=== PATIENT | male | born 1940 | race Caucasian/White ===

== ENCOUNTER 2018-11-19 08:58 | Emergency (ER) | payer MEDICARE, OTHER ==
[2018-11-19] MEDS ORDERED: Acetaminophen 500 MG TAB ONE (09:46)
--- NOTE | 2018-11-19 09:50 | RAD ---
CHEST 1 VIEW: Date: 11/19/18 HISTORY: Cough. Congestion. COMPARISON: 12/07/16. FINDINGS: Heart size mildly enlarged. Single lead defibrillator in place. No pneumothorax. No effusion. Mild sc arring both lung bases. IMPRESSION: No acute intrathoracic abnormality. POS: [facility]
[2018-11-19 09:54] LABS: #Basophils 0.1 thou/uL (0.0-0.2); #Monocytes 1.1 thou/uL (0.11-0.59); #Neutrophils 5.2 thou/uL (1.40-6.50); %Basophils 0.8 % (0.0-1.0); %Eosinophils 0.6 % (0.0-10.0); %Lymphocytes 13.2 % (21.0-51.0); %Monocytes 14.9 % (0.0-10.0); %Neutrophils 70.5 % (42.0-75.0); Hemoglobin 16.5 g/dL (14.0-18.0); Mean Corpuscular HGB CONC 33.4 g/dL (32.0-36.0); Mean Corpuscular Hemoglobin 30.6 pg (27.0-31.0); Mean Corpuscular Volume 91.7 fL (78.0-98.0); Mean Platelet Volume 8.3 fL (7.4-10.4); Platelet Count 166 thou/uL (130-400); RBC Distribution Width 12.1 % (11.5-14.5); White Blood Cell (WBC) Count 7.3 thou/uL (4.8-10.8)
[2018-11-19 10:21] LABS: ALT (SGPT) 23 U/L (8-55); AST (SGOT) 29 U/L (5-34); Albumin 4.2 g/dL (3.4-4.8); Alkaline Phosphatase 67 U/L (40-150); Anion Gap 14 mmol/L (10-20); BUN (Urea Nitrogen) 14 mg/dL (8.4-25.7); Bilirubin, Total 0.6 mg/dL (0.2-1.2); CK (CPK) 103 U/L (30-200); Calc. Creatinine Clearance 0 mL/min (70-130); Calcium 9.3 mg/dL (7.8-10.44); Carbon Dioxide 24 mmol/L (23-31); Chloride 103 mmol/L (98-107); Estimated GFR-MDRD 51; Globulin 3.4 g/dL (2.4-3.5); Glucose 111 mg/dL (83-110); Potassium 4.7 mmol/L (3.5-5.1); Protein, Total 7.6 g/dL (5.8-8.1); Sodium 136 mmol/L (136-145)
[2018-11-19 12:46] LABS: Bilirubin Negative (Negative); Blood, Urine Negative (Negative); Clarity CLEAR (Clear); Glucose, Urine (Dipstick) Negative (Negative); Leukocyte Negative (Negative); Nitrite Negative (Negative); Protein, Urine (Dipstick) Negative (Neg-Trace); Specific Gravity, Urine 1.011 (1.002-1.036); Urobilinogen 0.2 mg/dL (0.2-1.0); pH, Urine 7.5 (5.0-9.0)
--- NOTE | 2018-11-21 15:12 | EKG ---
Test Reason : Blood Pressure : / mmHG Vent. Rate : 102 BPM Atrial Rate : 102 BPM P-R Int : 000 ms QRS Dur : 158 ms QT Int : 380 ms P-R-T Axes : -05 -10 009 degrees QTc Int : 495 ms Sinus tachycardia Right bundle branch block Septal infarct , age undetermined Abnormal ECG Confirmed by CHRISTO DE LA TORRE, TEVIN Kelly ([id number]), editor in chief newspaper TRISTEN JARVIS ([id number]) on 11/21/2018 3:11:45 PM Referred By: Confirmed By:TEVIN VILLAFUERTE MD
== END 2018-11-19 11:05 | disposition home or self-care (01) ==
LOC: ERS 08:58
DX: J10.1 Influenza due to other identified influenza virus with other respiratory manifestations (principal); I25.2 Old myocardial infarction; Z79.01 Long term (current) use of anticoagulants; Z79.899 Other long term (current) drug therapy; W19.XXXA Unspecified fall, initial encounter
CPT/HCPCS: 71045; 80053; 81003; 82550; 84484; 85025; 87040; 87804; 93005; 94760

== ENCOUNTER 2019-11-22 08:55 | Outpatient (CLI) | payer MEDICARE, OTHER ==
--- NOTE | 2019-11-22 10:12 | ULT ---
Bilateral renal ultrasound CLINICAL INDICATION: Chronic kidney disease. COMPARISON: None FINDINGS: Right kidney: There is no evidence of a renal mass, renal calculus, or hydronephrosis seen. There is suggestion of mild focal area of scarring the junction of the midportion inferior pole right kidney. The right kidney measures 10.1 cm x 4.5 cm. Left kidney: There is no evidence of a renal mass, renal calculus, or hydronephrosis. There is sugges tion of mild scarring midportion left kidney. The left kidney measures 10.3 cm x 5.3 cm. Urinary bladder: Incompletely distended but otherwise grossly normal in appearance. Urinary bladder v olume is 76.3 mL. IMPRESSION: No evidence of hydronephrosis.
== END 2019-11-22 08:56 | disposition home or self-care (01) ==
LOC: BICULT 08:55
PROVIDERS: ATTEND Internal Medicine Nephrology
DX: N18.3 Chronic kidney disease, stage 3 (moderate) (principal)
CPT/HCPCS: 76770

== ENCOUNTER 2022-09-17 10:58 | Inpatient (IN) | payer MEDICARE ==
[2022-09-17 11:45] LABS: #Eosinphils 0.5 thou/uL (0.0-0.7); #Lymphocytes 1.2 thou/uL (1.20-3.40); #Monocytes 1.7 thou/uL (0.11-0.59); #Neutrophils 12.7 thou/uL (1.40-6.50); %Basophils 0.1 % (0.0-1.0); %Eosinophils 3.3 % (0.0-10.0); %Lymphocytes 7.6 % (21.0-51.0); %Monocytes 10.3 % (0.0-10.0); %Neutrophils 78.7 % (42.0-75.0); Hemoglobin 12.3 g/dL (14.0-18.0); Mean Corpuscular HGB CONC 32.8 g/dL (32.0-36.0); Mean Corpuscular Hemoglobin 29.9 pg (27.0-31.0); Mean Platelet Volume 9.1 fL (7.4-10.4); Platelet Count 245 10x3/uL (130-400); RBC Distribution Width 12.2 % (11.5-14.5); Red Blood Cell (RBC) Count 4.13 mill/uL (4.70-6.10); White Blood Cell (WBC) Count 16.2 10x3/uL (4.8-10.8)
[2022-09-17 12:20] LABS: ALT (SGPT) 59 U/L (8-55); AST (SGOT) 69 U/L (5-34); Albumin 3.1 g/dL (3.4-4.8); Alkaline Phosphatase 121 U/L (40-110); Anion Gap 16 mmol/L (10-20); BUN (Urea Nitrogen) 27 mg/dL (8.4-25.7); Bilirubin, Total 1.1 mg/dL (0.2-1.2); Calc. Creatinine Clearance 0 mL/min (70-130); Calcium 9.1 mg/dL (7.8-10.44); Carbon Dioxide 19 mmol/L (23-31); Chloride 91 mmol/L (98-107); Estimated GFR 55; Globulin 3.3 g/dL (2.4-3.5); Glucose 103 mg/dL (83-110); Potassium 4.1 mmol/L (3.5-5.1); Protein, Total 6.4 g/dL (5.8-8.1); Sodium 122 mmol/L (136-145)
[2022-09-17 12:28] LABS: INR-International Normal Ratio 3.4; Prothrombin Time 35.5 sec (12.0-14.7)
[2022-09-17] MEDS ORDERED: cefTRIAXone\\ROCEPHIN 2 GM VIAL ONE ×2 (12:31→13:28)
[2022-09-17 13:23] LABS: SARS-CoV-2 NAA Rapid Test Not Detected (NotDetected)
[2022-09-17] MEDS ORDERED: Azithromycin 500 MG VIAL ONE (13:44)
[2022-09-17] MEDS ORDERED: FENTANYL 50 MCG/ML 1 ML VIAL ONE (13:48)
[2022-09-17] MEDS ORDERED: Nitroglycerin 0.4 MG TAB 1 EACH ONE (14:11)
[2022-09-17] MEDS ORDERED: Acetaminophen 325 MG TAB PO PRN (14:43)
[2022-09-17] MEDS ORDERED: Sodium Chloride 0.9% 1,000 ML IV SCH ×2 (14:45→21:01)
[2022-09-17] MEDS ORDERED: Metoclopramide HCl 10 MG/2 ML VIAL IVP PRN (14:54)
[2022-09-17 15:19] VITALS: BMI 28.3
[2022-09-17] MEDS: Nitroglycerin 2% Ointment 1 INCH/1 GM Packet TOP SCH ×2 (15:47→21:26)
[2022-09-17] MEDS: Carvedilol 3.125 MG TAB PO SCH (15:47)
[2022-09-17 15:48] LABS: Troponin I 0.025 ng/mL (< 0.028)
[2022-09-17] MEDS ORDERED: VANCOMYCIN 2 GRAM/500 ML BAG 2 GM in Premix Bag 1 BAG IVPB SCH (16:15)
[2022-09-17] MEDS ORDERED: Morphine 4 MG/ML VIAL SLOW IVP PRN (16:18)
[2022-09-17] MEDS ORDERED: Morphine 4 MG/ML VIAL ONE (16:20)
[2022-09-17] MEDS: Cefepime 1 GM in Sodium Chloride 0.9% 100 ML IVPB SCH (17:08)
[2022-09-17 17:17] LABS: Troponin I 0.025 ng/mL (< 0.028)
[2022-09-17 20:12] LABS: Anion Gap 14 mmol/L (10-20); BUN (Urea Nitrogen) 27 mg/dL (8.4-25.7); Calc. Creatinine Clearance 62 mL/min (70-130); Calcium 8.4 mg/dL (7.8-10.44); Carbon Dioxide 18 mmol/L (23-31); Chloride 95 mmol/L (98-107); Estimated GFR 68; Glucose 118 mg/dL (83-110); Potassium 4.4 mmol/L (3.5-5.1); Sodium 123 mmol/L (136-145)
[2022-09-17 20:18] LABS: Troponin I 0.021 ng/mL (< 0.028)
[2022-09-17] MEDS: Montelukast Sodium 10 mg Tablet PO SCH (21:25)
[2022-09-17] MEDS: Docusate 100 MG CAP PO SCH (21:25)
[2022-09-17] MEDS: Benzonatate 100 MG CAP PO PRN (21:25)
[2022-09-17] MEDS: Famotidine 20 MG TAB PO SCH (21:25)
[2022-09-17] MEDS: Atorvastatin Calcium 10 MG TAB PO SCH (21:25)
[2022-09-18] MEDS: Benzonatate 100 MG CAP PO PRN ×2 (03:25→20:21)
[2022-09-18 04:28] LABS: #Eosinphils 0.5 thou/uL (0.0-0.7); #Lymphocytes 1.4 thou/uL (1.20-3.40); #Monocytes 1.3 thou/uL (0.11-0.59); %Basophils 0.1 % (0.0-1.0); %Eosinophils 3.6 % (0.0-10.0); %Lymphocytes 9.7 % (21.0-51.0); %Neutrophils 77.5 % (42.0-75.0); Hemoglobin 11.2 g/dL (14.0-18.0); Mean Platelet Volume 8.6 fL (7.4-10.4); Platelet Count 232 10x3/uL (130-400); RBC Distribution Width 12.1 % (11.5-14.5); Red Blood Cell (RBC) Count 3.61 mill/uL (4.70-6.10); White Blood Cell (WBC) Count 14.1 10x3/uL (4.8-10.8)
[2022-09-18 04:33] LABS: ALT (SGPT) 72 U/L (8-55); AST (SGOT) 75 U/L (5-34); Albumin 2.7 g/dL (3.4-4.8); Alkaline Phosphatase 100 U/L (40-110); Anion Gap 11 mmol/L (10-20); BUN (Urea Nitrogen) 26 mg/dL (8.4-25.7); Bilirubin, Direct 0.3 mg/dL (0.1-0.3); Bilirubin, Total 0.6 mg/dL (0.2-1.2); Calc. Creatinine Clearance 70 mL/min (70-130); Calcium 8.2 mg/dL (7.8-10.44); Carbon Dioxide 19 mmol/L (23-31); Chloride 95 mmol/L (98-107); Estimated GFR 79; Glucose 82 mg/dL (83-110); Protein, Total 5.3 g/dL (5.8-8.1); Sodium 121 mmol/L (136-145)
[2022-09-18 05:02] LABS: INR-International Normal Ratio 4.1
[2022-09-18 05:42] LABS: Bacteria/HPF None Seen HPF (None Seen); Bilirubin Negative (Negative); Blood, Urine Negative (Negative); Clarity Clear (Clear); Glucose, Urine (Dipstick) Normal (Negative); Ketone, Urine Negative (Negative); Leukocyte Negative Leu/uL (Negative); Nitrite Negative (Negative); Protein, Urine (Dipstick) 20 mg/dL (Neg-Trace); RBC/HPF None Seen HPF (0-3); Specific Gravity, Urine 1.019 (1.002-1.036); Squamous Epithelial 0-3 HPF (0-3); Urobilinogen Normal mg/dL (Less than 2); WBC/HPF 0-3 HPF (0-3)
[2022-09-18 05:54] LABS: Legionella Urinary Ag Negative (Negative); Strep pneumo Urine Ag NEGATIVE (NEGATIVE)
[2022-09-18] MEDS: Cefepime 1 GM in Sodium Chloride 0.9% 100 ML IVPB SCH ×2 (05:54→15:50)
[2022-09-18] MEDS: Nitroglycerin 2% Ointment 1 INCH/1 GM Packet TOP SCH ×2 (05:55→13:09)
[2022-09-18 06:13] LABS: Creatinine, Urine 100.77 mg/dL (63-166); Sodium, Urine Less than 20 mmol/L (Not Available)
[2022-09-18] MEDS ORDERED: Losartan 25 MG TAB PO SCH (09:00)
[2022-09-18] MEDS ORDERED: Loratadine 10 MG TAB PO SCH (09:00)
[2022-09-18] MEDS ORDERED: guaiFENesin/DM ER PO SCH ×2 (09:00→09:45)
[2022-09-18] MEDS: Docusate 100 MG CAP PO SCH (09:03)
[2022-09-18] MEDS: Aspirin 81 mg Enteric Coated Tablet PO SCH (09:03)
[2022-09-18] MEDS: Carvedilol 3.125 MG TAB PO SCH ×2 (09:03→16:39)
[2022-09-18] MEDS: Famotidine 20 MG TAB PO SCH (09:03)
[2022-09-18 09:57] LABS: Magnesium 1.8 mg/dL (1.6-2.6); Phosphorus 2.5 mg/dL (2.3-4.7)
[2022-09-18] MEDS ORDERED: Electrolyte Replacement Protocol 1 EACH FS SCH (10:45)
[2022-09-18] MEDS ORDERED: Electrolyte Replacement Protocol FS PRN (11:00)
[2022-09-18] MEDS ORDERED: Magnesium 2 GM/50 ML(in water) 2 GM in Premix Bag 1 BAG IVPB SCH (11:00)
[2022-09-18] MEDS ORDERED: Vancomycin 1.5 GRAM/300 ML BAG 1.5 GM in Premix Bag 1 BAG IVPB SCH (16:00)
[2022-09-18] MEDS: Mag-Al 1200 mg/1200 mg/30 ML UDCUP PO PRN (18:31)
[2022-09-18] MEDS ORDERED: Polyethylene Glycol 3350 17 GM Packet PO PRN (18:48)
[2022-09-18] MEDS: Senokot S 8.6-50 MG TAB PO SCH (20:20)
[2022-09-18] MEDS: Losartan 25 MG TAB PO SCH (20:21)
[2022-09-18] MEDS: Melatonin 3 MG TAB PO PRN (20:21)
[2022-09-18] MEDS: Atorvastatin Calcium 10 MG TAB PO SCH (20:21)
[2022-09-18] MEDS: guaiFENesin/DM ER PO SCH (20:21)
[2022-09-18] MEDS: Montelukast Sodium 10 mg Tablet PO SCH ×2 (20:22→20:28)
[2022-09-19] MEDS ORDERED: traZODone HCl 50 MG TAB PO SCH (01:30)
[2022-09-19 03:55] LABS: INR-International Normal Ratio 3.8; Prothrombin Time 39.3 sec (12.0-14.7)
[2022-09-19 04:14] LABS: ALT (SGPT) 118 U/L (8-55); AST (SGOT) 122 U/L (5-34); Albumin 2.5 g/dL (3.4-4.8); Alkaline Phosphatase 123 U/L (40-110); Anion Gap 11 mmol/L (10-20); BUN (Urea Nitrogen) 22 mg/dL (8.4-25.7); Bilirubin, Total 0.6 mg/dL (0.2-1.2); Calc. Creatinine Clearance 79 mL/min (70-130); Calcium 7.9 mg/dL (7.8-10.44); Carbon Dioxide 20 mmol/L (23-31); Chloride 96 mmol/L (98-107); Estimated GFR 86; Globulin 2.7 g/dL (2.4-3.5); Glucose 91 mg/dL (83-110); Phosphorus 2.6 mg/dL (2.3-4.7); Protein, Total 5.2 g/dL (5.8-8.1); Sodium 123 mmol/L (136-145)
[2022-09-19] MEDS: Cefepime 1 GM in Sodium Chloride 0.9% 100 ML IVPB SCH ×2 (05:02→17:21)
[2022-09-19 07:18] LABS: Hemoglobin 12.2 g/dL (14.0-18.0); Mean Corpuscular HGB CONC 33.9 g/dL (32.0-36.0); Mean Corpuscular Hemoglobin 31.2 pg (27.0-31.0); Mean Platelet Volume 7.1 fL (7.4-10.4); Platelet Count 263 10x3/uL (130-400); RBC Distribution Width 12.1 % (11.5-14.5); White Blood Cell (WBC) Count 14.3 10x3/uL (4.8-10.8)
[2022-09-19] MEDS ORDERED: Magnesium 2 GM/50 ML(in water) 2 GM in Premix Bag 1 BAG IVPB SCH (08:00)
[2022-09-19] MEDS: Carvedilol 3.125 MG TAB PO SCH ×2 (08:11→17:21)
[2022-09-19] MEDS: guaiFENesin/DM ER PO SCH ×2 (08:11→20:22)
[2022-09-19] MEDS: Senokot S 8.6-50 MG TAB PO SCH ×2 (08:11→20:22)
[2022-09-19] MEDS: Multivit, Therapeutic 1 TAB PO SCH (08:11)
[2022-09-19] MEDS: Aspirin 81 mg Enteric Coated Tablet PO SCH (08:11)
[2022-09-19] MEDS: Loratadine 10 MG TAB PO SCH (08:11)
[2022-09-19 08:21] LABS: #Eosinphils 0.9 thou/uL (0.0-0.7); #Lymphocytes 1.2 thou/uL (1.20-3.40); #Monocytes 1.1 thou/uL (0.11-0.59); #Neutrophils 11.1 thou/uL (1.40-6.50); %Basophils 0.1 % (0.0-1.0); %Lymphocytes 8.5 % (21.0-51.0); %Monocytes 7.8 % (0.0-10.0); %Neutrophils 77.6 % (42.0-75.0); Band 1 % (5-11); Eosinophils 5 % (0-10); Lymphocytes 9 % (21-51); MDiff Complete? YES; Monocytes 7 % (0-10); Neutrophil 78 % (42-75); RBC Morphology Normal
[2022-09-19] MEDS: Sodium Chloride 1 GM TAB PO SCH ×3 (13:24→20:22)
[2022-09-19] MEDS: Benzonatate 100 MG CAP PO PRN ×2 (14:07→20:23)
[2022-09-19] MEDS: Mag-Al 1200 mg/1200 mg/30 ML UDCUP PO PRN (14:07)
[2022-09-19 15:29] LABS: Vancomycin, Trough 8.7 ug/mL
[2022-09-19] MEDS: Vancomycin 1 GM in Premix Bag 1 BAG IVPB SCH (17:21)
[2022-09-19] MEDS ORDERED: Acetaminophen 325 MG TAB PO PRN (18:49)
[2022-09-19] MEDS: Melatonin 3 MG TAB PO PRN (20:22)
[2022-09-19] MEDS: Losartan 25 MG TAB PO SCH (20:23)
[2022-09-19] MEDS: Polyethylene Glycol 3350 17 GM Packet PO SCH (20:23)
[2022-09-19] MEDS: Bisacodyl 10 MG SUPP PR SCH (20:23)
[2022-09-19] MEDS: Montelukast Sodium 10 mg Tablet PO SCH (20:23)
[2022-09-20] MEDS: Vancomycin 1 GM in Premix Bag 1 BAG IVPB SCH (03:32)
[2022-09-20] MEDS: Calcium Carbonate 500 MG ChewTAB PO PRN ×2 (04:42→12:08)
[2022-09-20] MEDS: Cefepime 1 GM in Sodium Chloride 0.9% 100 ML IVPB SCH (04:42)
[2022-09-20] MEDS: Benzonatate 100 MG CAP PO PRN ×2 (04:42→22:29)
[2022-09-20 05:13] LABS: #Eosinphils 0.7 thou/uL (0.0-0.7); #Lymphocytes 1.6 thou/uL (1.20-3.40); #Monocytes 1.3 thou/uL (0.11-0.59); #Neutrophils 9.9 thou/uL (1.40-6.50); %Basophils 0.3 % (0.0-1.0); %Eosinophils 5.4 % (0.0-10.0); %Lymphocytes 11.8 % (21.0-51.0); %Monocytes 9.6 % (0.0-10.0); Hemoglobin 12.5 g/dL (14.0-18.0); Mean Corpuscular HGB CONC 34.9 g/dL (32.0-36.0); Mean Corpuscular Hemoglobin 31.8 pg (27.0-31.0); Mean Platelet Volume 8.9 fL (7.4-10.4); Platelet Count 166 10x3/uL (130-400); RBC Distribution Width 12.4 % (11.5-14.5); Red Blood Cell (RBC) Count 3.94 mill/uL (4.70-6.10); White Blood Cell (WBC) Count 13.5 10x3/uL (4.8-10.8)
[2022-09-20] MEDS: Furosemide 40 MG TAB PO SCH (08:35)
[2022-09-20] MEDS: Aspirin 81 mg Enteric Coated Tablet PO SCH (08:35)
[2022-09-20] MEDS: Sodium Chloride 1 GM TAB PO SCH ×3 (08:35→21:08)
[2022-09-20] MEDS: Carvedilol 3.125 MG TAB PO SCH ×2 (08:35→17:34)
[2022-09-20] MEDS: guaiFENesin/DM ER PO SCH ×2 (08:36→20:06)
[2022-09-20] MEDS: Senokot S 8.6-50 MG TAB PO SCH ×3 (08:36→20:09)
[2022-09-20] MEDS: Multivit, Therapeutic 1 TAB PO SCH (08:36)
[2022-09-20] MEDS: Polyethylene Glycol 3350 17 GM Packet PO SCH ×2 (08:36→20:06)
[2022-09-20] MEDS: Loratadine 10 MG TAB PO SCH (08:36)
[2022-09-20 09:18] LABS: Albumin 2.5 g/dL (3.4-4.8)
[2022-09-20 09:19] LABS: Chloride 98 mmol/L (98-107); Sodium 128 mmol/L (136-145)
[2022-09-20 09:20] LABS: Calcium 8.1 mg/dL (7.8-10.44); Glucose 90 mg/dL (83-110)
[2022-09-20 09:21] LABS: Globulin 2.8 g/dL (2.4-3.5); Protein, Total 5.3 g/dL (5.8-8.1)
[2022-09-20 09:22] LABS: Anion Gap 13 mmol/L (10-20); Bilirubin, Total 0.7 mg/dL (0.2-1.2); Carbon Dioxide 21 mmol/L (23-31)
[2022-09-20 09:23] LABS: Alkaline Phosphatase 131 U/L (40-110)
[2022-09-20 09:24] LABS: Calc. Creatinine Clearance 85 mL/min (70-130); Estimated GFR 88
[2022-09-20 09:25] LABS: BUN (Urea Nitrogen) 18 mg/dL (8.4-25.7)
[2022-09-20 09:26] LABS: ALT (SGPT) 127 U/L (8-55); AST (SGOT) 97 U/L (5-34)
[2022-09-20] MEDS: Mag-Al 1200 mg/1200 mg/30 ML UDCUP PO PRN ×2 (09:39→18:25)
[2022-09-20 09:48] LABS: Anion Gap 14 mmol/L (10-20); BUN (Urea Nitrogen) 16 mg/dL (8.4-25.7); Calc. Creatinine Clearance 76 mL/min (70-130); Calcium 8.4 mg/dL (7.8-10.44); Carbon Dioxide 20 mmol/L (23-31); Chloride 99 mmol/L (98-107); Estimated GFR 85; Glucose 95 mg/dL (83-110); Potassium 4.3 mmol/L (3.5-5.1); Sodium 129 mmol/L (136-145)
[2022-09-20 16:51] LABS: INR-International Normal Ratio 1.9; Prothrombin Time 22.4 sec (12.0-14.7)
[2022-09-20] MEDS: Bisacodyl 10 MG SUPP PR SCH (20:05)
[2022-09-20] MEDS: Cefdinir 300 MG CAP PO SCH (20:06)
[2022-09-20] MEDS: Montelukast Sodium 10 mg Tablet PO SCH (20:06)
[2022-09-20] MEDS: Losartan 25 MG TAB PO SCH (20:06)
[2022-09-20] MEDS ORDERED: Polyethylene Glycol 3350 17 GM Packet PO PRN (20:21)
[2022-09-20] MEDS: Melatonin 3 MG TAB PO PRN (21:08)
[2022-09-21 04:02] LABS: INR-International Normal Ratio 1.6; Prothrombin Time 19.3 sec (12.0-14.7)
[2022-09-21 04:04] LABS: #Basophils 0.1 thou/uL (0.0-0.2); #Lymphocytes 1.6 thou/uL (1.20-3.40); #Monocytes 1.2 thou/uL (0.11-0.59); #Neutrophils 8.8 thou/uL (1.40-6.50); %Basophils 0.4 % (0.0-1.0); %Eosinophils 8.1 % (0.0-10.0); %Lymphocytes 12.3 % (21.0-51.0); %Monocytes 9.4 % (0.0-10.0); %Neutrophils 69.8 % (42.0-75.0); Hemoglobin 11.9 g/dL (14.0-18.0); Mean Corpuscular HGB CONC 33.9 g/dL (32.0-36.0); Mean Corpuscular Hemoglobin 31.4 pg (27.0-31.0); Mean Corpuscular Volume 92.8 fl (78.0-98.0); Mean Platelet Volume 6.5 fL (7.4-10.4); Platelet Count 366 10x3/uL (130-400); RBC Distribution Width 12.2 % (11.5-14.5); White Blood Cell (WBC) Count 12.7 10x3/uL (4.8-10.8)
[2022-09-21 04:13] LABS: ALT (SGPT) 117 U/L (8-55); AST (SGOT) 71 U/L (5-34); Albumin 2.5 g/dL (3.4-4.8); Alkaline Phosphatase 119 U/L (40-110); Anion Gap 11 mmol/L (10-20); BUN (Urea Nitrogen) 13 mg/dL (8.4-25.7); Bilirubin, Total 0.6 mg/dL (0.2-1.2); Calc. Creatinine Clearance 80 mL/min (70-130); Calcium 8.1 mg/dL (7.8-10.44); Carbon Dioxide 26 mmol/L (23-31); Chloride 99 mmol/L (98-107); Estimated GFR 87; Globulin 2.7 g/dL (2.4-3.5); Glucose 91 mg/dL (83-110); Potassium 4.2 mmol/L (3.5-5.1); Protein, Total 5.2 g/dL (5.8-8.1); Sodium 132 mmol/L (136-145)
[2022-09-21] MEDS: Senokot S 8.6-50 MG TAB PO SCH (10:01)
[2022-09-21] MEDS: guaiFENesin/DM ER PO SCH ×2 (10:09→20:14)
[2022-09-21] MEDS: Cefdinir 300 MG CAP PO SCH ×2 (10:09→20:14)
[2022-09-21] MEDS: Aspirin 81 mg Enteric Coated Tablet PO SCH (10:09)
[2022-09-21] MEDS: Loratadine 10 MG TAB PO SCH (10:09)
[2022-09-21] MEDS: Multivit, Therapeutic 1 TAB PO SCH (10:09)
[2022-09-21] MEDS: Sodium Chloride 1 GM TAB PO SCH ×3 (10:10→20:14)
[2022-09-21] MEDS: Carvedilol 3.125 MG TAB PO SCH ×2 (10:10→17:47)
[2022-09-21] MEDS: Furosemide 40 MG TAB PO SCH (10:10)
[2022-09-21] MEDS: Mag-Al 1200 mg/1200 mg/30 ML UDCUP PO PRN ×2 (13:03→19:08)
[2022-09-21] MEDS: Benzonatate 100 MG CAP PO PRN ×2 (15:33→23:04)
[2022-09-21] MEDS: Warfarin Sodium 2 MG TAB PO SCH (17:43)
[2022-09-21] MEDS: Bisacodyl 10 MG SUPP PR SCH (20:14)
[2022-09-21] MEDS: Losartan 25 MG TAB PO SCH (20:14)
[2022-09-21] MEDS: Montelukast Sodium 10 mg Tablet PO SCH (20:14)
[2022-09-21] MEDS: Melatonin 3 MG TAB PO PRN (23:04)
[2022-09-22 04:03] LABS: #Basophils 0.1 thou/uL (0.0-0.2); #Lymphocytes 1.7 thou/uL (1.20-3.40); #Monocytes 1.3 thou/uL (0.11-0.59); #Neutrophils 7.6 thou/uL (1.40-6.50); %Basophils 0.6 % (0.0-1.0); %Eosinophils 8.7 % (0.0-10.0); %Lymphocytes 14.4 % (21.0-51.0); %Monocytes 10.9 % (0.0-10.0); %Neutrophils 65.5 % (42.0-75.0); Hemoglobin 13.1 g/dL (14.0-18.0); Mean Corpuscular HGB CONC 33.3 g/dL (32.0-36.0); Mean Corpuscular Hemoglobin 30.7 pg (27.0-31.0); Mean Corpuscular Volume 92.3 fl (78.0-98.0); Mean Platelet Volume 7.1 fL (7.4-10.4); Platelet Count 320 10x3/uL (130-400); RBC Distribution Width 12.3 % (11.5-14.5); Red Blood Cell (RBC) Count 4.26 mill/uL (4.70-6.10); White Blood Cell (WBC) Count 11.6 10x3/uL (4.8-10.8)
[2022-09-22 04:09] LABS: INR-International Normal Ratio 1.3; Prothrombin Time 16.9 sec (12.0-14.7)
[2022-09-22 04:25] LABS: Anion Gap 11 mmol/L (10-20); BUN (Urea Nitrogen) 14 mg/dL (8.4-25.7); Calc. Creatinine Clearance 74 mL/min (70-130); Calcium 8.5 mg/dL (7.8-10.44); Carbon Dioxide 27 mmol/L (23-31); Chloride 97 mmol/L (98-107); Estimated GFR 85; Glucose 92 mg/dL (83-110); Potassium 4.3 mmol/L (3.5-5.1); Sodium 131 mmol/L (136-145)
[2022-09-22] MEDS: Benzonatate 100 MG CAP PO PRN ×3 (05:36→18:58)
[2022-09-22] MEDS ORDERED: Saccharomyces boulardii 250 MG CAP PO SCH (09:00)
[2022-09-22] MEDS: Mag-Al 1200 mg/1200 mg/30 ML UDCUP PO PRN ×2 (09:31→18:58)
[2022-09-22] MEDS: Aspirin 81 mg Enteric Coated Tablet PO SCH (09:32)
[2022-09-22] MEDS: Carvedilol 3.125 MG TAB PO SCH ×2 (09:32→17:18)
[2022-09-22] MEDS: Sodium Chloride 1 GM TAB PO SCH ×3 (09:32→21:47)
[2022-09-22] MEDS: Cefdinir 300 MG CAP PO SCH ×2 (09:32→21:47)
[2022-09-22] MEDS: Folic Acid/Vit B Comp W-C PO SCH (09:32)
[2022-09-22] MEDS: Furosemide 40 MG TAB PO SCH (09:32)
[2022-09-22] MEDS: Senokot S 8.6-50 MG TAB PO SCH (09:32)
[2022-09-22] MEDS: guaiFENesin/DM ER PO SCH ×2 (09:33→21:47)
[2022-09-22] MEDS: Loratadine 10 MG TAB PO SCH (09:33)
[2022-09-22] MEDS: Calcium Carbonate 500 MG ChewTAB PO PRN (12:27)
[2022-09-22] MEDS: Warfarin Sodium 2 MG TAB PO SCH (17:55)
[2022-09-22] MEDS: Montelukast Sodium 10 mg Tablet PO SCH (21:47)
[2022-09-22] MEDS: Losartan 25 MG TAB PO SCH (21:48)
[2022-09-22] MEDS: Bisacodyl 10 MG SUPP PR SCH (22:02)
[2022-09-23 06:23] LABS: INR-International Normal Ratio 1.3; Prothrombin Time 17.1 sec (12.0-14.7)
[2022-09-23 06:33] LABS: Anion Gap 13 mmol/L (10-20); BUN (Urea Nitrogen) 13 mg/dL (8.4-25.7); Calc. Creatinine Clearance 76 mL/min (70-130); Calcium 8.3 mg/dL (7.8-10.44); Carbon Dioxide 25 mmol/L (23-31); Chloride 97 mmol/L (98-107); Estimated GFR 85; Glucose 86 mg/dL (83-110); Potassium 4.9 mmol/L (3.5-5.1); Sodium 130 mmol/L (136-145)
[2022-09-23] MEDS: Aspirin 81 mg Enteric Coated Tablet PO SCH (08:46)
[2022-09-23] MEDS: Folic Acid/Vit B Comp W-C PO SCH (08:46)
[2022-09-23] MEDS: Senokot S 8.6-50 MG TAB PO SCH (08:46)
[2022-09-23] MEDS: Sodium Chloride 1 GM TAB PO SCH ×3 (08:46→21:13)
[2022-09-23] MEDS: Cefdinir 300 MG CAP PO SCH ×2 (08:46→21:13)
[2022-09-23] MEDS: Loratadine 10 MG TAB PO SCH (08:47)
[2022-09-23] MEDS: Carvedilol 3.125 MG TAB PO SCH ×2 (08:47→17:09)
[2022-09-23 09:32] LABS: Band 5 % (5-11); Eosinophils 11 % (0-10); Hemoglobin 12.7 g/dL (14.0-18.0); Lymphocytes 17 % (21-51); MDiff Complete? YES; Mean Corpuscular HGB CONC 32.2 g/dL (32.0-36.0); Mean Corpuscular Hemoglobin 30.1 pg (27.0-31.0); Mean Corpuscular Volume 93.4 fl (78.0-98.0); Mean Platelet Volume 6.5 fL (7.4-10.4); Monocytes 15 % (0-10); Neutrophil 51 % (42-75); Platelet Count 370 10x3/uL (130-400); Platelet Morphology Comment Appears Adequate; RBC Distribution Width 12.5 % (11.5-14.5); RBC Morphology Normal; Reactive Lymphocytes 1 % (0-10); Red Blood Cell (RBC) Count 4.22 mill/uL (4.70-6.10); White Blood Cell (WBC) Count 9.8 10x3/uL (4.8-10.8)
[2022-09-23] MEDS: Furosemide 40 MG TAB PO SCH ×3 (09:48→19:19)
[2022-09-23] MEDS: guaiFENesin/DM ER PO SCH ×2 (09:48→21:13)
[2022-09-23] MEDS: Benzonatate 100 MG CAP PO PRN (11:15)
[2022-09-23] MEDS: Calcium Carbonate 500 MG ChewTAB PO PRN ×2 (14:15→19:01)
[2022-09-23] MEDS: Warfarin Sodium 2 MG TAB PO SCH (17:10)
[2022-09-23] MEDS ORDERED: Benzonatate 100 MG CAP PO SCH ×2 (17:30→21:00)
[2022-09-23] MEDS: Benzonatate 100 MG CAP PO SCH (21:12)
[2022-09-23] MEDS: Losartan 25 MG TAB PO SCH (21:13)
[2022-09-23] MEDS: Montelukast Sodium 10 mg Tablet PO SCH (21:13)
[2022-09-23] MEDS: Bisacodyl 10 MG SUPP PR SCH (21:14)
[2022-09-24 06:18] LABS: INR-International Normal Ratio 1.5; Prothrombin Time 18.8 sec (12.0-14.7)
[2022-09-24 06:34] LABS: Anion Gap 12 mmol/L (10-20); BUN (Urea Nitrogen) 13 mg/dL (8.4-25.7); Calc. Creatinine Clearance 75 mL/min (70-130); Calcium 8.6 mg/dL (7.8-10.44); Carbon Dioxide 26 mmol/L (23-31); Chloride 96 mmol/L (98-107); Estimated GFR 85; Glucose 86 mg/dL (83-110); Potassium 3.8 mmol/L (3.5-5.1); Sodium 130 mmol/L (136-145)
[2022-09-24 06:39] LABS: Band 8 % (5-11); Eosinophils 1 % (0-10); Hypochromia SLIGHT = 6-15 cells (100X) (0-5/hpf); Lymphocytes 9 % (21-51); MDiff Complete? YES; Mean Corpuscular HGB CONC 31.3 g/dL (32.0-36.0); Mean Corpuscular Hemoglobin 28.9 pg (27.0-31.0); Mean Corpuscular Volume 92.5 fl (78.0-98.0); Mean Platelet Volume 6.3 fL (7.4-10.4); Monocytes 20 % (0-10); Neutrophil 58 % (42-75); Platelet Count 423 10x3/uL (130-400); Platelet Morphology Comment Appears Increased; RBC Distribution Width 12.6 % (11.5-14.5); Reactive Lymphocytes 4 % (0-10); Red Blood Cell (RBC) Count 4.49 mill/uL (4.70-6.10); White Blood Cell (WBC) Count 8.5 10x3/uL (4.8-10.8)
[2022-09-24] MEDS: Cefdinir 300 MG CAP PO SCH ×2 (08:42→20:54)
[2022-09-24] MEDS: Aspirin 81 mg Enteric Coated Tablet PO SCH (08:42)
[2022-09-24] MEDS: Senokot S 8.6-50 MG TAB PO SCH (08:44)
[2022-09-24] MEDS: Sodium Chloride 1 GM TAB PO SCH ×3 (08:44→20:54)
[2022-09-24] MEDS: Folic Acid/Vit B Comp W-C PO SCH (08:44)
[2022-09-24] MEDS: Furosemide 40 MG TAB PO SCH ×2 (08:44→14:06)
[2022-09-24] MEDS: Loratadine 10 MG TAB PO SCH (08:44)
[2022-09-24] MEDS: Carvedilol 3.125 MG TAB PO SCH ×2 (08:45→17:16)
[2022-09-24] MEDS: Benzonatate 100 MG CAP PO SCH ×3 (08:45→20:54)
[2022-09-24] MEDS: guaiFENesin/DM ER PO SCH ×2 (08:45→20:54)
[2022-09-24] MEDS ORDERED: Albuterol Sulfate 2.5 mg/3 ml Neb NEB PRN (13:55)
[2022-09-24 16:18] LABS: Magnesium 2.2 mg/dL (1.6-2.6)
[2022-09-24] MEDS: Warfarin Sodium 2 MG TAB PO SCH (17:12)
[2022-09-24] MEDS: Montelukast Sodium 10 mg Tablet PO SCH (20:54)
[2022-09-24] MEDS: Losartan 25 MG TAB PO SCH (20:54)
[2022-09-24] MEDS: Bisacodyl 10 MG SUPP PR SCH (21:36)
[2022-09-25 05:48] LABS: INR-International Normal Ratio 1.8; Prothrombin Time 21.7 sec (12.0-14.7)
[2022-09-25 05:57] LABS: Phosphorus 3.6 mg/dL (2.3-4.7)
[2022-09-25 05:59] LABS: Anion Gap 13 mmol/L (10-20); BUN (Urea Nitrogen) 14 mg/dL (8.4-25.7); Calc. Creatinine Clearance 71 mL/min (70-130); Calcium 8.5 mg/dL (7.8-10.44); Carbon Dioxide 28 mmol/L (23-31); Chloride 99 mmol/L (98-107); Estimated GFR 80; Glucose 87 mg/dL (83-110); Magnesium 2.1 mg/dL (1.6-2.6); Potassium 3.9 mmol/L (3.5-5.1); Sodium 136 mmol/L (136-145)
[2022-09-25] MEDS: Sodium Chloride 1 GM TAB PO SCH ×3 (08:08→20:02)
[2022-09-25] MEDS: Folic Acid/Vit B Comp W-C PO SCH (08:08)
[2022-09-25] MEDS: Benzonatate 100 MG CAP PO SCH ×3 (08:08→20:02)
[2022-09-25] MEDS: Aspirin 81 mg Enteric Coated Tablet PO SCH (08:08)
[2022-09-25] MEDS: Loratadine 10 MG TAB PO SCH (08:09)
[2022-09-25] MEDS: guaiFENesin/DM ER PO SCH ×2 (08:09→20:02)
[2022-09-25] MEDS: Furosemide 40 MG TAB PO SCH (08:09)
[2022-09-25] MEDS: Cefdinir 300 MG CAP PO SCH ×2 (08:10→20:02)
[2022-09-25] MEDS: Senokot S 8.6-50 MG TAB PO SCH (08:10)
[2022-09-25] MEDS: Saccharomyces boulardii 250 MG CAP PO SCH (08:10)
[2022-09-25] MEDS: Carvedilol 3.125 MG TAB PO SCH ×2 (10:37→17:44)
[2022-09-25] MEDS: Warfarin Sodium 2 MG TAB PO SCH (17:43)
[2022-09-25] MEDS: Montelukast Sodium 10 mg Tablet PO SCH (20:02)
[2022-09-25] MEDS: Bisacodyl 10 MG SUPP PR SCH (20:03)
[2022-09-25] MEDS: Losartan 25 MG TAB PO SCH (20:04)
[2022-09-26] MEDS: Melatonin 3 MG TAB PO PRN (02:01)
[2022-09-26 05:33] LABS: INR-International Normal Ratio 1.8
[2022-09-26 05:45] LABS: Anion Gap 11 mmol/L (10-20); BUN (Urea Nitrogen) 12 mg/dL (8.4-25.7); Calc. Creatinine Clearance 70 mL/min (70-130); Calcium 8.3 mg/dL (7.8-10.44); Carbon Dioxide 26 mmol/L (23-31); Chloride 99 mmol/L (98-107); Estimated GFR 78; Glucose 85 mg/dL (83-110); Potassium 4.3 mmol/L (3.5-5.1); Sodium 132 mmol/L (136-145)
[2022-09-26] MEDS: Carvedilol 3.125 MG TAB PO SCH ×2 (08:54→17:31)
[2022-09-26] MEDS: Loratadine 10 MG TAB PO SCH (09:58)
[2022-09-26] MEDS: Sodium Chloride 1 GM TAB PO SCH ×3 (09:58→19:56)
[2022-09-26] MEDS: Aspirin 81 mg Enteric Coated Tablet PO SCH (09:58)
[2022-09-26] MEDS: Benzonatate 100 MG CAP PO SCH ×3 (09:58→19:57)
[2022-09-26] MEDS: Saccharomyces boulardii 250 MG CAP PO SCH (09:58)
[2022-09-26] MEDS: Folic Acid/Vit B Comp W-C PO SCH (09:58)
[2022-09-26] MEDS: Senokot S 8.6-50 MG TAB PO SCH (09:58)
[2022-09-26] MEDS: guaiFENesin/DM ER PO SCH ×2 (09:58→19:58)
[2022-09-26] MEDS: Cefdinir 300 MG CAP PO SCH ×2 (09:58→19:56)
[2022-09-26] MEDS ORDERED: Fluticasone Propionate Nasal Spray 16 gm Bottle NASAL PRN (12:10)
[2022-09-26 15:35] VITALS: BP 121/76; TEMP 97.5
[2022-09-26] MEDS ORDERED: Warfarin Sodium 1.5 MG TAB PO SCH (17:00)
[2022-09-26] MEDS ORDERED: Warfarin Sodium 5 MG TAB PO SCH (17:00)
[2022-09-26] MEDS ORDERED: Warfarin Sodium 2 MG TAB PO SCH (17:00)
[2022-09-26] MEDS: Bisacodyl 10 MG SUPP PR SCH (19:56)
[2022-09-26] MEDS: Montelukast Sodium 10 mg Tablet PO SCH (19:57)
[2022-09-26] MEDS: Losartan 25 MG TAB PO SCH (19:57)
== END 2022-09-26 20:20 | DRG 871 ==
LOC: ERS 10:58 → IMCU/EMU 13:31 → NEURO 09-22 17:09
PROVIDERS: ADMIT Internal Medicine; ATTEND Internal Medicine
PROC: 3E03329 Introduction of Other Anti-infective into Peripheral Vein, Percutaneous Approach (ICD-10-PCS; principal; 2022-09-17)
PROC: 5A09357 Assistance with Respiratory Ventilation, Less than 24 Consecutive Hours, Continuous Positive Airway Pressure (ICD-10-PCS; 2022-09-17)
PROC: 5A0935A Assistance with Respiratory Ventilation, Less than 24 Consecutive Hours, High Flow/Velocity Cannula (ICD-10-PCS; 2022-09-21)
DX: A41.9 Sepsis, unspecified organism (principal); J15.9 Unspecified bacterial pneumonia; J96.01 Acute respiratory failure with hypoxia; E22.2 Syndrome of inappropriate secretion of antidiuretic hormone; I50.22 Chronic systolic (congestive) heart failure; I25.110 Atherosclerotic heart disease of native coronary artery with unstable angina pectoris; K56.7 Ileus, unspecified; Z20.822 Contact with and (suspected) exposure to COVID-19; G47.33 Obstructive sleep apnea (adult) (pediatric); R65.20 Severe sepsis without septic shock; E83.42 Hypomagnesemia; I25.5 Ischemic cardiomyopathy; E78.5 Hyperlipidemia, unspecified; J30.9 Allergic rhinitis, unspecified; K21.9 Gastro-esophageal reflux disease without esophagitis; R79.1 Abnormal coagulation profile; R94.31 Abnormal electrocardiogram [ECG] [EKG]; R31.0 Gross hematuria; R94.5 Abnormal results of liver function studies; D75.829 Heparin-induced thrombocytopenia, unspecified; I13.10 Hypertensive heart and chronic kidney disease without heart failure, with stage 1 through stage 4 chronic kidney disease, or unspecified chronic kidney disease; N18.9 Chronic kidney disease, unspecified; J06.9 Acute upper respiratory infection, unspecified; R74.01 Elevation of levels of liver transaminase levels; I95.9 Hypotension, unspecified; R33.9 Retention of urine, unspecified; Z99.89 Dependence on other enabling machines and devices; Z90.89 Acquired absence of other organs; Z98.49 Cataract extraction status, unspecified eye; Z95.810 Presence of automatic (implantable) cardiac defibrillator; Z79.899 Other long term (current) drug therapy; Z90.49 Acquired absence of other specified parts of digestive tract; Z82.49 Family history of ischemic heart disease and other diseases of the circulatory system; Z95.5 Presence of coronary angioplasty implant and graft; I25.2 Old myocardial infarction; Z88.8 Allergy status to other drugs, medicaments and biological substances; Z79.01 Long term (current) use of anticoagulants; Z86.718 Personal history of other venous thrombosis and embolism
CPT/HCPCS: 36415; 71045; 74018; 74230; 80048; 80053; 80076; 80202; 81001; 82533; 82570; 83605; 83735; 83880; 83930; 83935; 84100; 84300; 84443; 84484; 84550; 85025; 85610; 85730; 87040; 87081; 87449; 87633; 87798; 87811; 87899; 93005; 93010; 93306; 94640; 94760; 96374; 96375; J0456; J0692; J0696; J2270; J3010; J3370; J3475; J3490; J7050; J7620

== ENCOUNTER 2022-11-13 14:23 | Outpatient (CLI) | payer MEDICARE | END 2022-11-13 14:24 | disposition home or self-care (01) | LOC: RAD 14:23 | PROVIDERS: ATTEND Physician Assistant | DX: I25.5 Ischemic cardiomyopathy (principal) | CPT/HCPCS: 71046 ==

== ENCOUNTER 2023-02-11 16:46 | Emergency (ER) | payer MEDICARE ==
[2023-02-11 18:23] LABS: #Basophils 0.1 thou/uL (0.0-0.2); #Eosinphils 0.4 thou/uL (0.0-0.7); #Lymphocytes 2.2 thou/uL (1.20-3.40); #Monocytes 0.9 thou/uL (0.11-0.59); %Basophils 0.9 % (0.0-1.0); %Eosinophils 3.8 % (0.0-10.0); %Lymphocytes 23.2 % (21.0-51.0); %Monocytes 8.9 % (0.0-10.0); %Neutrophils 63.3 % (42.0-75.0); Hemoglobin 14.9 g/dL (14.0-18.0); Mean Corpuscular HGB CONC 32.9 g/dL (32.0-36.0); Mean Corpuscular Hemoglobin 29.4 pg (27.0-31.0); Mean Corpuscular Volume 89.2 fl (78.0-98.0); Mean Platelet Volume 8.2 fL (7.4-10.4); Platelet Count 177 10x3/uL (130-400); RBC Distribution Width 12.5 % (11.5-14.5); Red Blood Cell (RBC) Count 5.06 mill/uL (4.70-6.10); White Blood Cell (WBC) Count 9.6 10x3/uL (4.8-10.8)
[2023-02-11 18:46] LABS: ALT (SGPT) 40 U/L (8-55); AST (SGOT) 24 U/L (5-34); Alkaline Phosphatase 85 U/L (40-110); Anion Gap 13 mmol/L (10-20); BUN (Urea Nitrogen) 25 mg/dL (8.4-25.7); Bilirubin, Total 0.3 mg/dL (0.2-1.2); Calc. Creatinine Clearance 0 mL/min (70-130); Calcium 9.5 mg/dL (7.8-10.44); Carbon Dioxide 26 mmol/L (23-31); Chloride 105 mmol/L (98-107); Estimated GFR 47; Globulin 3.3 g/dL (2.4-3.5); Glucose 108 mg/dL (83-110); Lipase 59 U/L (8-78); Magnesium 2.1 mg/dL (1.6-2.6); Protein, Total 7.3 g/dL (5.8-8.1); Sodium 140 mmol/L (136-145)
== END 2023-02-11 20:33 | disposition home or self-care (01) ==
LOC: ERS 16:46
DX: I47.20 Ventricular tachycardia, unspecified (principal); T82.897A Other specified complication of cardiac prosthetic devices, implants and grafts, initial encounter; Z79.82 Long term (current) use of aspirin; Z79.899 Other long term (current) drug therapy; Z79.01 Long term (current) use of anticoagulants
CPT/HCPCS: 36415; 71045; 80053; 83690; 83735; 83880; 84484; 85025; 93005

== ENCOUNTER 2023-05-27 21:28 | Inpatient (IN) | payer MEDICARE ==
[2023-05-27 22:51] LABS: #Basophils 0.1 thou/uL (0.0-0.2); #Eosinphils 0.2 thou/uL (0.0-0.7); #Neutrophils 8.8 thou/uL (1.40-6.50); %Basophils 0.5 % (0.0-1.0); %Eosinophils 1.3 % (0.0-10.0); %Lymphocytes 11.6 % (21.0-51.0); %Neutrophils 77.2 % (42.0-75.0); Hematocrit 39.9 % (42.0-52.0); Hemoglobin 13.2 g/dL (14.0-18.0); Mean Corpuscular HGB CONC 33.1 g/dL (32.0-36.0); Mean Corpuscular Hemoglobin 30.8 pg (27.0-31.0); Platelet Count 197 10x3/uL (130-400); RBC Distribution Width 14.6 % (11.5-14.5); Red Blood Cell (RBC) Count 4.29 mill/uL (4.70-6.10); White Blood Cell (WBC) Count 11.3 10x3/uL (4.8-10.8)
[2023-05-27 23:15] LABS: ALT (SGPT) 35 U/L (8-55); AST (SGOT) 19 U/L (5-34); Albumin 3.8 g/dL (3.4-4.8); Alkaline Phosphatase 93 U/L (40-110); Anion Gap 15 mmol/L (10-20); BUN (Urea Nitrogen) 26 mg/dL (8.4-25.7); Bilirubin, Total 0.6 mg/dL (0.2-1.2); Calc. Creatinine Clearance 0 mL/min (70-130); Calcium 8.8 mg/dL (7.8-10.44); Carbon Dioxide 21 mmol/L (23-31); Chloride 101 mmol/L (98-107); Estimated GFR 33; Globulin 2.8 g/dL (2.4-3.5); Glucose 127 mg/dL (83-110); Lipase 49 U/L (8-78); Magnesium 1.9 mg/dL (1.6-2.6); Potassium 4.2 mmol/L (3.5-5.1); Protein, Total 6.6 g/dL (5.8-8.1); Sodium 133 mmol/L (136-145)
[2023-05-27 23:22] LABS: Troponin I Less than 0.010 ng/mL (< 0.028)
[2023-05-28] MEDS ORDERED: Furosemide 40 MG/4 ML VIAL ONE (00:26)
[2023-05-28 01:53] LABS: Troponin I 0.018 ng/mL (< 0.028)
[2023-05-28] MEDS ORDERED: Acetaminophen 650 MG Suppository PR PRN (02:41)
[2023-05-28] MEDS ORDERED: Ondansetron PF 4 MG/2 ML Vial IVP PRN (02:45)
[2023-05-28] MEDS ORDERED: Ondansetron ODT 4 MG TAB SL PRN (02:45)
[2023-05-28] MEDS ORDERED: Acetaminophen 325 MG TAB PO PRN (02:45)
[2023-05-28 04:15] LABS: #Basophils 0.1 thou/uL (0.0-0.2); #Eosinphils 0.2 thou/uL (0.0-0.7); #Monocytes 0.8 thou/uL (0.11-0.59); #Neutrophils 5.4 thou/uL (1.40-6.50); %Basophils 0.8 % (0.0-1.0); %Eosinophils 2.1 % (0.0-10.0); %Lymphocytes 16.9 % (21.0-51.0); %Monocytes 10.3 % (0.0-10.0); %Neutrophils 69.8 % (42.0-75.0); Hematocrit 41.4 % (42.0-52.0); Hemoglobin 13.6 g/dL (14.0-18.0); Mean Corpuscular HGB CONC 32.9 g/dL (32.0-36.0); Mean Corpuscular Hemoglobin 30.7 pg (27.0-31.0); Mean Corpuscular Volume 93.5 fl (78.0-98.0); Mean Platelet Volume 9.8 fL (7.4-10.4); Platelet Count 186 10x3/uL (130-400); RBC Distribution Width 14.6 % (11.5-14.5); Red Blood Cell (RBC) Count 4.43 mill/uL (4.70-6.10); White Blood Cell (WBC) Count 7.7 10x3/uL (4.8-10.8)
[2023-05-28 04:35] LABS: Anion Gap 14 mmol/L (10-20); BUN (Urea Nitrogen) 25 mg/dL (8.4-25.7); Calc. Creatinine Clearance 38 mL/min (70-130); Carbon Dioxide 24 mmol/L (23-31); Chloride 103 mmol/L (98-107); Estimated GFR 37; Glucose 102 mg/dL (83-110); Magnesium 2.2 mg/dL (1.6-2.6); Sodium 137 mmol/L (136-145)
[2023-05-28 04:40] LABS: Troponin I Less than 0.010 ng/mL (< 0.028)
[2023-05-28] MEDS ORDERED: Fluticasone Propionate Nasal Spray 16 gm Bottle NASAL PRN (05:04)
[2023-05-28] MEDS: Furosemide 40 MG/4 ML VIAL SLOW IVP SCH ×2 (05:43→13:44)
[2023-05-28] MEDS ORDERED: Amiodarone 200 MG TAB PO SCH (09:00)
[2023-05-28] MEDS: Aspirin 81 mg Enteric Coated Tablet PO SCH (10:15)
[2023-05-28] MEDS: Empagliflozin 10 MG TAB PO SCH (10:15)
[2023-05-28] MEDS: Apixaban 5 MG TAB PO SCH ×2 (10:15→20:20)
[2023-05-28] MEDS: Atorvastatin Calcium 10 MG TAB PO SCH (20:19)
[2023-05-28] MEDS: Amiodarone 200 MG TAB PO SCH (20:20)
[2023-05-28] MEDS: Loratadine 10 MG TAB PO SCH (20:20)
[2023-05-28] MEDS: Montelukast Sodium 10 mg Tablet PO SCH (20:20)
[2023-05-28] MEDS ORDERED: Cetirizine HCl 10 MG TAB PO SCH (21:00)
[2023-05-28] MEDS ORDERED: Losartan 25 MG TAB PO SCH (21:00)
[2023-05-29 04:23] LABS: Anion Gap 12 mmol/L (10-20); BUN (Urea Nitrogen) 29 mg/dL (8.4-25.7); Calc. Creatinine Clearance 33 mL/min (70-130); Calcium 9.3 mg/dL (7.8-10.44); Carbon Dioxide 28 mmol/L (23-31); Chloride 99 mmol/L (98-107); Estimated GFR 32; Glucose 101 mg/dL (83-110); Potassium 4.2 mmol/L (3.5-5.1); Sodium 135 mmol/L (136-145)
[2023-05-29] MEDS: Furosemide 40 MG/4 ML VIAL SLOW IVP SCH (05:40)
[2023-05-29] MEDS ORDERED: Non-Formulary Item 1 EACH (Omeprazole [Omeprazole] 20 MG Capsule.Dr) PO SCH (09:00)
[2023-05-29] MEDS: Aspirin 81 mg Enteric Coated Tablet PO SCH (09:56)
[2023-05-29] MEDS: Apixaban 2.5 MG TAB PO SCH ×2 (10:02→21:11)
[2023-05-29] MEDS: Empagliflozin 10 MG TAB PO SCH (10:19)
[2023-05-29] MEDS: Apixaban 5 MG TAB PO SCH (12:26)
[2023-05-29] MEDS ORDERED: Furosemide 40 MG/4 ML VIAL SLOW IVP SCH (14:00)
[2023-05-29] MEDS: Amiodarone 200 MG TAB PO SCH (21:11)
[2023-05-29] MEDS: Atorvastatin Calcium 10 MG TAB PO SCH (21:11)
[2023-05-29] MEDS: Loratadine 10 MG TAB PO SCH (21:11)
[2023-05-29] MEDS: Montelukast Sodium 10 mg Tablet PO SCH (21:12)
[2023-05-30 04:15] LABS: Anion Gap 14 mmol/L (10-20); BUN (Urea Nitrogen) 33 mg/dL (8.4-25.7); Calc. Creatinine Clearance 38 mL/min (70-130); Calcium 9.1 mg/dL (7.8-10.44); Carbon Dioxide 26 mmol/L (23-31); Chloride 100 mmol/L (98-107); Estimated GFR 39; Glucose 95 mg/dL (83-110); Magnesium 2.3 mg/dL (1.6-2.6); Sodium 136 mmol/L (136-145)
[2023-05-30] MEDS: Empagliflozin 10 MG TAB PO SCH (08:57)
[2023-05-30] MEDS: Apixaban 2.5 MG TAB PO SCH ×2 (08:57→20:38)
[2023-05-30] MEDS: Aspirin 81 mg Enteric Coated Tablet PO SCH (08:57)
[2023-05-30] MEDS: Sacubitril 24MG/Valsartan 26 MG TAB PO SCH ×2 (08:57→20:39)
[2023-05-30] MEDS ORDERED: Furosemide 40 MG/4 ML VIAL SLOW IVP SCH (09:00)
[2023-05-30] MEDS: Docusate 100 MG CAP PO PRN (09:02)
[2023-05-30 11:41] VITALS: BP 107/70
[2023-05-30 18:15] LABS: Bacteria/HPF None Seen HPF (None Seen); Bilirubin Negative (Negative); Blood, Urine Negative (Negative); Clarity Clear (Clear); Glucose, Urine (Dipstick) Greater than 1000 mg/dL (Negative); Ketone, Urine Negative (Negative); Leukocyte Negative Leu/uL (Negative); Nitrite Negative (Negative); Protein, Urine (Dipstick) Negative (Neg-Trace); RBC/HPF 0-3 HPF (0-3); Specific Gravity, Urine 1.014 (1.002-1.036); Squamous Epithelial None Seen HPF (0-3); Urobilinogen Normal mg/dL (Less than 2); WBC/HPF 0-3 HPF (0-3); pH, Urine 5.5 (5.0-9.0)
[2023-05-30] MEDS: Atorvastatin Calcium 10 MG TAB PO SCH (20:38)
[2023-05-30] MEDS: Amiodarone 200 MG TAB PO SCH (20:38)
[2023-05-30] MEDS: Montelukast Sodium 10 mg Tablet PO SCH (20:38)
[2023-05-30] MEDS: Loratadine 10 MG TAB PO SCH (20:39)
[2023-05-31 07:28] LABS: #Basophils 0.1 thou/uL (0.0-0.2); #Eosinphils 0.4 thou/uL (0.0-0.7); #Monocytes 0.9 thou/uL (0.11-0.59); #Neutrophils 5.1 thou/uL (1.40-6.50); %Eosinophils 5.2 % (0.0-10.0); %Lymphocytes 22.1 % (21.0-51.0); %Monocytes 10.5 % (0.0-10.0); Hematocrit 44.1 % (42.0-52.0); Hemoglobin 14.6 g/dL (14.0-18.0); Mean Corpuscular HGB CONC 33.1 g/dL (32.0-36.0); Mean Corpuscular Hemoglobin 30.6 pg (27.0-31.0); Mean Corpuscular Volume 92.5 fl (78.0-98.0); Mean Platelet Volume 9.9 fL (7.4-10.4); Platelet Count 217 10x3/uL (130-400); RBC Distribution Width 13.9 % (11.5-14.5); Red Blood Cell (RBC) Count 4.77 mill/uL (4.70-6.10); White Blood Cell (WBC) Count 8.3 10x3/uL (4.8-10.8)
[2023-05-31 08:52] LABS: Anion Gap 12 mmol/L (10-20); BUN (Urea Nitrogen) 26 mg/dL (8.4-25.7); Calc. Creatinine Clearance 37 mL/min (70-130); Calcium 9.2 mg/dL (7.8-10.44); Carbon Dioxide 27 mmol/L (23-31); Chloride 101 mmol/L (98-107); Estimated GFR 37; Glucose 95 mg/dL (83-110); Potassium 4.1 mmol/L (3.5-5.1); Sodium 136 mmol/L (136-145)
[2023-05-31] MEDS ORDERED: Furosemide 20 MG TAB PO SCH (09:00)
[2023-05-31] MEDS ORDERED: Multivitamin W/ Minerals 1 TAB PO SCH (09:00)
[2023-05-31 11:47] VITALS: TEMP 97.6
[2023-05-31] MEDS: Sacubitril 24MG/Valsartan 26 MG TAB PO SCH (12:11)
[2023-05-31] MEDS: Apixaban 2.5 MG TAB PO SCH (12:14)
[2023-05-31] MEDS: Empagliflozin 10 MG TAB PO SCH (12:15)
[2023-05-31] MEDS: Aspirin 81 mg Enteric Coated Tablet PO SCH (12:15)
[2023-05-31] MEDS: Docusate 100 MG CAP PO PRN (12:24)
== END 2023-05-31 14:40 | disposition home or self-care (01) | DRG 291 ==
LOC: ERS 21:28 → ERHOLD 05-28 00:06 → IMCU/EMU 05-28 02:00 → OBSVTOIN 05-28 09:18
PROVIDERS: ADMIT Student in an Organized Health Care Education/Training Program; ATTEND Internal Medicine
DX: I13.0 Hypertensive heart and chronic kidney disease with heart failure and stage 1 through stage 4 chronic kidney disease, or unspecified chronic kidney disease (principal); I50.23 Acute on chronic systolic (congestive) heart failure; J96.01 Acute respiratory failure with hypoxia; N17.9 Acute kidney failure, unspecified; I47.20 Ventricular tachycardia, unspecified; I25.10 Atherosclerotic heart disease of native coronary artery without angina pectoris; N18.32 Chronic kidney disease, stage 3b; E78.5 Hyperlipidemia, unspecified; Z66 Do not resuscitate; I25.2 Old myocardial infarction; I95.89 Other hypotension; D63.1 Anemia in chronic kidney disease; Z88.8 Allergy status to other drugs, medicaments and biological substances; Z79.82 Long term (current) use of aspirin; Z79.899 Other long term (current) drug therapy; Z90.49 Acquired absence of other specified parts of digestive tract; Z98.890 Other specified postprocedural states; Z79.01 Long term (current) use of anticoagulants; Z98.49 Cataract extraction status, unspecified eye; Z86.718 Personal history of other venous thrombosis and embolism; Z95.5 Presence of coronary angioplasty implant and graft; I25.5 Ischemic cardiomyopathy; G47.30 Sleep apnea, unspecified
CPT/HCPCS: 36415; 71045; 80048; 80053; 81001; 83690; 83735; 83880; 84484; 85025; 93005; 93798; 93970; 96374; J1940

== ENCOUNTER 2023-09-29 11:28 | Inpatient (IN) | payer MEDICARE ==
[2023-09-29 12:15] LABS: #Basophils 0.1 thou/uL (0.0-0.2); #Eosinphils 0.3 thou/uL (0.0-0.7); #Monocytes 0.7 thou/uL (0.11-0.59); #Neutrophils 6.9 thou/uL (1.40-6.50); %Eosinophils 2.8 % (0.0-10.0); %Lymphocytes 11.1 % (21.0-51.0); %Monocytes 7.5 % (0.0-10.0); %Neutrophils 77.3 % (42.0-75.0); Hemoglobin 15.3 g/dL (14.0-18.0); Mean Corpuscular HGB CONC 33.3 g/dL (32.0-36.0); Mean Corpuscular Hemoglobin 29.7 pg (27.0-31.0); Mean Corpuscular Volume 89.1 fl (78.0-98.0); Platelet Count 230 10x3/uL (130-400); RBC Distribution Width 17.5 % (11.5-14.5); Red Blood Cell (RBC) Count 5.16 mill/uL (4.70-6.10); White Blood Cell (WBC) Count 8.9 10x3/uL (4.8-10.8)
[2023-09-29 12:42] LABS: Troponin I Less than 0.010 ng/mL (< 0.028)
[2023-09-29 13:05] LABS: Chloride 98 mmol/L (98-107); Potassium 5.2 mmol/L (3.5-5.1); Sodium 135 mmol/L (136-145)
[2023-09-29 13:07] LABS: Albumin 4.6 g/dL (3.4-4.8)
[2023-09-29 13:08] LABS: Anion Gap 19 mmol/L (10-20); Carbon Dioxide 23 mmol/L (23-31)
[2023-09-29 13:09] LABS: Calcium 9.4 mg/dL (7.8-10.44)
[2023-09-29 13:10] LABS: Globulin 3.7 g/dL (2.4-3.5); Glucose 86 mg/dL (83-110); Protein, Total 8.3 g/dL (5.8-8.1)
[2023-09-29 13:12] LABS: Bilirubin, Total 1.5 mg/dL (0.2-1.2)
[2023-09-29 13:13] LABS: Alkaline Phosphatase 110 U/L (40-110)
[2023-09-29 13:14] LABS: BUN (Urea Nitrogen) 22 mg/dL (8.4-25.7); Calc. Creatinine Clearance 0 mL/min (70-130); Estimated GFR 31
[2023-09-29 13:15] LABS: AST (SGOT) 40 U/L (5-34)
[2023-09-29 13:16] LABS: ALT (SGPT) 32 U/L (8-55)
[2023-09-29] MEDS ORDERED: Ondansetron ODT 4 MG TAB PO PRN (13:20)
[2023-09-29] MEDS ORDERED: Acetaminophen 325 MG TAB PO PRN (13:20)
[2023-09-29] MEDS ORDERED: Furosemide 40 MG/4 ML VIAL ONE (13:22)
[2023-09-29] MEDS: Furosemide 20 MG/2 ML VIAL SLOW IVP SCH (15:38)
[2023-09-29 15:43] VITALS: BMI 28.0
[2023-09-29 16:11] LABS: Magnesium 2.7 mg/dL (1.6-2.6)
[2023-09-29] MEDS: Albumin 25% 25 GM (100 mL) BOT IVPB SCH ×2 (17:33→23:20)
[2023-09-29] MEDS: Famotidine 20 MG TAB PO SCH (19:51)
[2023-09-29] MEDS: Apixaban 2.5 MG TAB PO SCH (19:51)
[2023-09-29] MEDS ORDERED: Calcium Carbonate 500 MG ChewTAB PO PRN (21:43)
[2023-09-29] MEDS: Melatonin 3 MG TAB PO PRN (22:06)
[2023-09-30 04:25] LABS: #Basophils 0.1 thou/uL (0.0-0.2); #Eosinphils 0.2 thou/uL (0.0-0.7); #Monocytes 0.8 thou/uL (0.11-0.59); #Neutrophils 4.1 thou/uL (1.40-6.50); %Basophils 0.9 % (0.0-1.0); %Eosinophils 3.8 % (0.0-10.0); %Monocytes 12.1 % (0.0-10.0); Hematocrit 37.2 % (42.0-52.0); Mean Corpuscular Volume 90.5 fl (78.0-98.0); Mean Platelet Volume 10.5 fL (7.4-10.4); Platelet Count 181 10x3/uL (130-400); RBC Distribution Width 17.3 % (11.5-14.5); Red Blood Cell (RBC) Count 4.11 mill/uL (4.70-6.10); White Blood Cell (WBC) Count 6.3 10x3/uL (4.8-10.8)
[2023-09-30] MEDS: Albumin 25% 25 GM (100 mL) BOT IVPB SCH ×2 (05:23→14:06)
[2023-09-30] MEDS: Furosemide 20 MG/2 ML VIAL SLOW IVP SCH ×2 (05:23→14:05)
[2023-09-30 05:41] LABS: ALT (SGPT) 22 U/L (8-55); AST (SGOT) 17 U/L (5-34); Albumin 4.2 g/dL (3.4-4.8); Alkaline Phosphatase 75 U/L (40-110); Anion Gap 13 mmol/L (10-20); BUN (Urea Nitrogen) 21 mg/dL (8.4-25.7); Bilirubin, Total 0.9 mg/dL (0.2-1.2); Calc. Creatinine Clearance 31 mL/min (70-130); Carbon Dioxide 26 mmol/L (23-31); Chloride 99 mmol/L (98-107); Estimated GFR 31; Globulin 2.3 g/dL (2.4-3.5); Glucose 105 mg/dL (83-110); Potassium 3.7 mmol/L (3.5-5.1); Protein, Total 6.5 g/dL (5.8-8.1); Sodium 134 mmol/L (136-145)
[2023-09-30 05:49] LABS: Calcium 9.1 mg/dL (7.8-10.44)
[2023-09-30 06:12] LABS: Hemoglobin 11.9 g/dL (14.0-18.0)
[2023-09-30] MEDS: Aspirin 81 mg Enteric Coated Tablet PO SCH (09:03)
[2023-09-30] MEDS: Apixaban 2.5 MG TAB PO SCH ×2 (09:04→19:49)
[2023-09-30] MEDS ORDERED: DOBUTamine 500 mg/250 ml 250 ML IVPB SCH (19:30)
[2023-09-30] MEDS ORDERED: DOBUTamine 500 mg/250 ml 500 MG in Premix 1 BAG IVPB SCH (19:45)
[2023-09-30] MEDS: Famotidine 20 MG TAB PO SCH (19:48)
[2023-09-30] MEDS: Melatonin 3 MG TAB PO PRN (21:13)
[2023-09-30 23:29] LABS: #Neutrophils 7.9 thou/uL (1.40-6.50); %Basophils 0.4 % (0.0-1.0); %Eosinophils 0.2 % (0.0-10.0); %Lymphocytes 7.2 % (21.0-51.0); %Monocytes 10.5 % (0.0-10.0); %Neutrophils 81.4 % (42.0-75.0); Hematocrit 37.7 % (42.0-52.0); Hemoglobin 12.4 g/dL (14.0-18.0); Mean Corpuscular HGB CONC 32.9 g/dL (32.0-36.0); Mean Corpuscular Hemoglobin 29.2 pg (27.0-31.0); Mean Corpuscular Volume 88.7 fl (78.0-98.0); Platelet Count 141 10x3/uL (130-400); RBC Distribution Width 16.7 % (11.5-14.5); Red Blood Cell (RBC) Count 4.25 mill/uL (4.70-6.10); White Blood Cell (WBC) Count 9.8 10x3/uL (4.8-10.8)
[2023-10-01] MEDS: Furosemide 20 MG/2 ML VIAL SLOW IVP SCH ×2 (06:01→14:21)
[2023-10-01 08:26] LABS: Anion Gap 14 mmol/L (10-20); BUN (Urea Nitrogen) 24 mg/dL (8.4-25.7); Calc. Creatinine Clearance 31 mL/min (70-130); Calcium 8.6 mg/dL (7.8-10.44); Carbon Dioxide 24 mmol/L (23-31); Chloride 97 mmol/L (98-107); Estimated GFR 30; Glucose 97 mg/dL (83-110); Potassium 4.2 mmol/L (3.5-5.1); Sodium 131 mmol/L (136-145)
[2023-10-01] MEDS: Amiodarone 200 MG TAB PO SCH (09:34)
[2023-10-01] MEDS: Montelukast Sodium 10 mg Tablet PO SCH (09:34)
[2023-10-01] MEDS: Aspirin 81 mg Enteric Coated Tablet PO SCH (09:34)
[2023-10-01] MEDS: Apixaban 2.5 MG TAB PO SCH ×2 (09:35→20:30)
[2023-10-01] MEDS: DOBUTamine 500 mg/250 ml 500 MG in Premix 1 BAG IVPB SCH (16:27)
[2023-10-01] MEDS: Melatonin 3 MG TAB PO PRN (20:30)
[2023-10-01] MEDS: Famotidine 20 MG TAB PO SCH (20:30)
[2023-10-02 05:49] LABS: Anion Gap 13 mmol/L (10-20); BUN (Urea Nitrogen) 25 mg/dL (8.4-25.7); Calc. Creatinine Clearance 36 mL/min (70-130); Calcium 8.8 mg/dL (7.8-10.44); Carbon Dioxide 27 mmol/L (23-31); Chloride 95 mmol/L (98-107); Estimated GFR 37; Glucose 88 mg/dL (83-110); Potassium 3.4 mmol/L (3.5-5.1); Sodium 132 mmol/L (136-145)
[2023-10-02] MEDS: Furosemide 20 MG/2 ML VIAL SLOW IVP SCH ×2 (06:48→14:35)
[2023-10-02] MEDS ORDERED: Potassium Chloride 20 MEQ TAB PO SCH (07:30)
[2023-10-02] MEDS: Apixaban 2.5 MG TAB PO SCH ×2 (08:22→20:49)
[2023-10-02] MEDS: Montelukast Sodium 10 mg Tablet PO SCH (08:22)
[2023-10-02] MEDS: Amiodarone 200 MG TAB PO SCH (08:22)
[2023-10-02] MEDS: Aspirin 81 mg Enteric Coated Tablet PO SCH (08:22)
[2023-10-02] MEDS: Famotidine 20 MG TAB PO SCH (20:49)
[2023-10-02] MEDS: Melatonin 3 MG TAB PO PRN (20:49)
[2023-10-03 05:31] LABS: Anion Gap 14 mmol/L (10-20); BUN (Urea Nitrogen) 18 mg/dL (8.4-25.7); Calc. Creatinine Clearance 42 mL/min (70-130); Calcium 8.7 mg/dL (7.8-10.44); Carbon Dioxide 27 mmol/L (23-31); Chloride 99 mmol/L (98-107); Estimated GFR 44; Glucose 90 mg/dL (83-110); Potassium 3.7 mmol/L (3.5-5.1); Sodium 136 mmol/L (136-145)
[2023-10-03] MEDS: Furosemide 20 MG/2 ML VIAL SLOW IVP SCH ×2 (06:04→15:40)
[2023-10-03] MEDS: Amiodarone 200 MG TAB PO SCH (09:37)
[2023-10-03] MEDS: Apixaban 2.5 MG TAB PO SCH ×2 (09:37→20:12)
[2023-10-03] MEDS: Montelukast Sodium 10 mg Tablet PO SCH (09:37)
[2023-10-03] MEDS: Aspirin 81 mg Enteric Coated Tablet PO SCH (09:37)
[2023-10-03] MEDS: Famotidine 20 MG TAB PO SCH (20:12)
[2023-10-04] MEDS: Furosemide 20 MG/2 ML VIAL SLOW IVP SCH ×2 (05:17→15:21)
[2023-10-04 05:33] LABS: #Basophils 0.1 thou/uL (0.0-0.2); #Eosinphils 0.4 thou/uL (0.0-0.7); #Monocytes 0.7 thou/uL (0.11-0.59); #Neutrophils 4.2 thou/uL (1.40-6.50); %Basophils 0.9 % (0.0-1.0); %Eosinophils 6.1 % (0.0-10.0); %Neutrophils 65.8 % (42.0-75.0); Hemoglobin 12.1 g/dL (14.0-18.0); Mean Corpuscular HGB CONC 32.7 g/dL (32.0-36.0); Mean Corpuscular Hemoglobin 29.4 pg (27.0-31.0); Mean Platelet Volume 10.3 fL (7.4-10.4); Platelet Count 178 10x3/uL (130-400); Red Blood Cell (RBC) Count 4.11 mill/uL (4.70-6.10); White Blood Cell (WBC) Count 6.4 10x3/uL (4.8-10.8)
[2023-10-04 05:59] LABS: Anion Gap 12 mmol/L (10-20); BUN (Urea Nitrogen) 13 mg/dL (8.4-25.7); Calc. Creatinine Clearance 49 mL/min (70-130); Calcium 8.6 mg/dL (7.8-10.44); Carbon Dioxide 27 mmol/L (23-31); Chloride 101 mmol/L (98-107); Estimated GFR 55; Glucose 88 mg/dL (83-110); Potassium 3.3 mmol/L (3.5-5.1); Sodium 137 mmol/L (136-145)
[2023-10-04] MEDS: Aspirin 81 mg Enteric Coated Tablet PO SCH (08:55)
[2023-10-04] MEDS: Amiodarone 200 MG TAB PO SCH (08:55)
[2023-10-04] MEDS: Montelukast Sodium 10 mg Tablet PO SCH (08:55)
[2023-10-04] MEDS: Apixaban 2.5 MG TAB PO SCH ×2 (08:55→22:25)
[2023-10-04] MEDS ORDERED: Bisacodyl 10 MG SUPP PR SCH (14:15)
[2023-10-04] MEDS ORDERED: Potassium Chloride 20 MEQ TAB PO SCH (14:15)
[2023-10-04] MEDS: Polyethylene Glycol 3350 17 GM Packet PO SCH (15:21)
[2023-10-04] MEDS: Famotidine 20 MG TAB PO SCH (22:25)
[2023-10-04] MEDS: Melatonin 3 MG TAB PO PRN (22:25)
[2023-10-05 04:56] LABS: #Basophils 0.1 thou/uL (0.0-0.2); #Eosinphils 0.3 thou/uL (0.0-0.7); #Monocytes 0.7 thou/uL (0.11-0.59); #Neutrophils 3.9 thou/uL (1.40-6.50); %Basophils 1.1 % (0.0-1.0); %Eosinophils 4.9 % (0.0-10.0); %Lymphocytes 19.2 % (21.0-51.0); %Monocytes 10.7 % (0.0-10.0); %Neutrophils 63.9 % (42.0-75.0); Hematocrit 37.7 % (42.0-52.0); Hemoglobin 12.3 g/dL (14.0-18.0); Mean Corpuscular HGB CONC 32.6 g/dL (32.0-36.0); Mean Corpuscular Hemoglobin 28.7 pg (27.0-31.0); Mean Corpuscular Volume 88.1 fl (78.0-98.0); Platelet Count 195 10x3/uL (130-400); RBC Distribution Width 17.1 % (11.5-14.5); Red Blood Cell (RBC) Count 4.28 mill/uL (4.70-6.10); White Blood Cell (WBC) Count 6.2 10x3/uL (4.8-10.8)
[2023-10-05 05:26] LABS: Anion Gap 14 mmol/L (10-20); BUN (Urea Nitrogen) 14 mg/dL (8.4-25.7); Calc. Creatinine Clearance 48 mL/min (70-130); Calcium 8.8 mg/dL (7.8-10.44); Carbon Dioxide 25 mmol/L (23-31); Chloride 102 mmol/L (98-107); Estimated GFR 54; Glucose 83 mg/dL (83-110); Potassium 3.8 mmol/L (3.5-5.1); Sodium 137 mmol/L (136-145)
[2023-10-05] MEDS: Furosemide 20 MG/2 ML VIAL SLOW IVP SCH ×2 (06:36→13:35)
[2023-10-05] MEDS: Apixaban 2.5 MG TAB PO SCH ×2 (08:45→21:24)
[2023-10-05] MEDS: Polyethylene Glycol 3350 17 GM Packet PO SCH (08:45)
[2023-10-05] MEDS: Amiodarone 200 MG TAB PO SCH (08:45)
[2023-10-05] MEDS: Aspirin 81 mg Enteric Coated Tablet PO SCH (08:45)
[2023-10-05] MEDS: Montelukast Sodium 10 mg Tablet PO SCH (08:45)
[2023-10-05] MEDS ORDERED: Furosemide 100 MG/10 ML VIAL SLOW IVP SCH (15:30)
[2023-10-05] MEDS ORDERED: Phentolamine Mesylate 5 MG VIAL SC SCH (20:15)
[2023-10-05] MEDS: Famotidine 20 MG TAB PO SCH (21:24)
[2023-10-05] MEDS: Melatonin 3 MG TAB PO PRN (21:26)
[2023-10-06 04:53] LABS: #Basophils 0.1 thou/uL (0.0-0.2); #Eosinphils 0.2 thou/uL (0.0-0.7); #Monocytes 0.6 thou/uL (0.11-0.59); #Neutrophils 4.1 thou/uL (1.40-6.50); %Basophils 0.8 % (0.0-1.0); %Eosinophils 3.9 % (0.0-10.0); %Lymphocytes 17.7 % (21.0-51.0); %Monocytes 10.5 % (0.0-10.0); %Neutrophils 66.9 % (42.0-75.0); Hematocrit 37.1 % (42.0-52.0); Hemoglobin 12.2 g/dL (14.0-18.0); Mean Corpuscular HGB CONC 32.9 g/dL (32.0-36.0); Mean Corpuscular Volume 88.1 fl (78.0-98.0); Mean Platelet Volume 9.8 fL (7.4-10.4); Platelet Count 192 10x3/uL (130-400); RBC Distribution Width 16.8 % (11.5-14.5); Red Blood Cell (RBC) Count 4.21 mill/uL (4.70-6.10); White Blood Cell (WBC) Count 6.1 10x3/uL (4.8-10.8)
[2023-10-06] MEDS: Furosemide 100 MG/10 ML VIAL SLOW IVP SCH ×2 (05:02→13:42)
[2023-10-06 05:15] LABS: Anion Gap 14 mmol/L (10-20); BUN (Urea Nitrogen) 15 mg/dL (8.4-25.7); Calc. Creatinine Clearance 48 mL/min (70-130); Calcium 8.8 mg/dL (7.8-10.44); Carbon Dioxide 24 mmol/L (23-31); Chloride 102 mmol/L (98-107); Estimated GFR 53; Glucose 94 mg/dL (83-110); Potassium 3.7 mmol/L (3.5-5.1); Sodium 136 mmol/L (136-145)
[2023-10-06] MEDS: Apixaban 2.5 MG TAB PO SCH ×2 (08:00→20:52)
[2023-10-06] MEDS: Amiodarone 200 MG TAB PO SCH (08:00)
[2023-10-06] MEDS: Montelukast Sodium 10 mg Tablet PO SCH (08:00)
[2023-10-06] MEDS: Polyethylene Glycol 3350 17 GM Packet PO SCH (08:00)
[2023-10-06] MEDS: Aspirin 81 mg Enteric Coated Tablet PO SCH (08:00)
[2023-10-06] MEDS: DOBUTamine 500 mg/250 ml 500 MG in Premix 1 BAG IVPB SCH (10:12)
[2023-10-06] MEDS ORDERED: Empagliflozin 10 MG TAB PO SCH (10:15)
[2023-10-06] MEDS ORDERED: Bisacodyl 5 MG TAB PO SCH (15:30)
[2023-10-06] MEDS: Famotidine 20 MG TAB PO SCH (20:52)
[2023-10-06] MEDS: Melatonin 3 MG TAB PO PRN (23:09)
[2023-10-07 04:54] LABS: Hematocrit 39.6 % (42.0-52.0); Hemoglobin 12.8 g/dL (14.0-18.0); Mean Corpuscular HGB CONC 32.3 g/dL (32.0-36.0); Mean Corpuscular Hemoglobin 29.1 pg (27.0-31.0); Platelet Count 212 10x3/uL (130-400); RBC Distribution Width 16.8 % (11.5-14.5); White Blood Cell (WBC) Count 7.2 10x3/uL (4.8-10.8)
[2023-10-07 04:55] LABS: #Basophils 0.1 thou/uL (0.0-0.2); #Eosinphils 0.4 thou/uL (0.0-0.7); #Monocytes 0.8 thou/uL (0.11-0.59); #Neutrophils 4.7 thou/uL (1.40-6.50); %Eosinophils 5.4 % (0.0-10.0); %Monocytes 10.5 % (0.0-10.0); %Neutrophils 64.8 % (42.0-75.0); Mean Platelet Volume 9.7 fL (7.4-10.4)
[2023-10-07 05:12] LABS: Anion Gap 14 mmol/L (10-20); BUN (Urea Nitrogen) 17 mg/dL (8.4-25.7); Calc. Creatinine Clearance 37 mL/min (70-130); Calcium 9.1 mg/dL (7.8-10.44); Carbon Dioxide 27 mmol/L (23-31); Chloride 99 mmol/L (98-107); Estimated GFR 39; Glucose 91 mg/dL (83-110); Potassium 3.4 mmol/L (3.5-5.1); Sodium 137 mmol/L (136-145)
[2023-10-07] MEDS: Furosemide 100 MG/10 ML VIAL SLOW IVP SCH ×2 (06:41→15:31)
[2023-10-07] MEDS ORDERED: Potassium Chloride 20 MEQ TAB PO SCH (08:45)
[2023-10-07] MEDS: Polyethylene Glycol 3350 17 GM Packet PO SCH (09:22)
[2023-10-07] MEDS: Bisacodyl 5 MG TAB PO SCH (09:24)
[2023-10-07] MEDS: Apixaban 2.5 MG TAB PO SCH (09:24)
[2023-10-07] MEDS: Amiodarone 200 MG TAB PO SCH (09:24)
[2023-10-07] MEDS: Montelukast Sodium 10 mg Tablet PO SCH (09:24)
[2023-10-07] MEDS: Empagliflozin 10 MG TAB PO SCH (09:29)
[2023-10-07] MEDS: Aspirin 81 mg Enteric Coated Tablet PO SCH (09:30)
[2023-10-07] MEDS: DOBUTamine 500 mg/250 ml 500 MG in Premix 1 BAG IVPB SCH (11:32)
[2023-10-07] MEDS ORDERED: DOBUTamine 500 mg/250 ml 500 MG in Premix 1 BAG IVPB SCH (13:41)
[2023-10-07] MEDS ORDERED: Sodium Chloride 0.9% 500 ML IVPB SCH (22:15)
[2023-10-07] MEDS ORDERED: NOREPINEPHRINE 8 MG/250 ML-D5W 250 ML ONE (23:04)
[2023-10-07] MEDS ORDERED: NOREPINEPHRINE 8 MG/250 ML-D5W 250 ML IVPB SCH (23:15)
[2023-10-07] MEDS ORDERED: Benzonatate 100 MG CAP PO PRN (23:27)
[2023-10-08] MEDS: Famotidine 20 MG TAB PO SCH (00:03)
[2023-10-08] MEDS: Apixaban 2.5 MG TAB PO SCH ×4 (00:03→20:48)
[2023-10-08] MEDS: Melatonin 3 MG TAB PO PRN ×2 (00:19→20:47)
[2023-10-08 04:02] LABS: #Basophils 0.1 thou/uL (0.0-0.2); #Eosinphils 0.3 thou/uL (0.0-0.7); #Monocytes 0.7 thou/uL (0.11-0.59); #Neutrophils 6.6 thou/uL (1.40-6.50); %Basophils 0.9 % (0.0-1.0); %Eosinophils 3.5 % (0.0-10.0); %Lymphocytes 12.9 % (21.0-51.0); %Monocytes 7.5 % (0.0-10.0); %Neutrophils 74.7 % (42.0-75.0); Hematocrit 41.1 % (42.0-52.0); Hemoglobin 13.4 g/dL (14.0-18.0); Mean Corpuscular HGB CONC 32.6 g/dL (32.0-36.0); Mean Corpuscular Hemoglobin 28.8 pg (27.0-31.0); Mean Corpuscular Volume 88.4 fl (78.0-98.0); Mean Platelet Volume 9.6 fL (7.4-10.4); Platelet Count 238 10x3/uL (130-400); RBC Distribution Width 16.5 % (11.5-14.5); Red Blood Cell (RBC) Count 4.65 mill/uL (4.70-6.10); White Blood Cell (WBC) Count 8.8 10x3/uL (4.8-10.8)
[2023-10-08 04:21] LABS: Anion Gap 16 mmol/L (10-20); BUN (Urea Nitrogen) 18 mg/dL (8.4-25.7); Calc. Creatinine Clearance 33 mL/min (70-130); Calcium 9.1 mg/dL (7.8-10.44); Carbon Dioxide 25 mmol/L (23-31); Chloride 98 mmol/L (98-107); Estimated GFR 35; Glucose 130 mg/dL (83-110); Potassium 3.9 mmol/L (3.5-5.1); Sodium 135 mmol/L (136-145)
[2023-10-08] MEDS: Montelukast Sodium 10 mg Tablet PO SCH (08:57)
[2023-10-08] MEDS: Aspirin 81 mg Enteric Coated Tablet PO SCH (08:57)
[2023-10-08] MEDS: Digoxin 0.125 MG TAB PO SCH (08:57)
[2023-10-08] MEDS: Bisacodyl 5 MG TAB PO SCH (08:57)
[2023-10-08] MEDS: Polyethylene Glycol 3350 17 GM Packet PO SCH (08:58)
[2023-10-08] MEDS: Midodrine HCl 5 MG TAB PO SCH ×3 (08:58→20:47)
[2023-10-08] MEDS: Amiodarone 200 MG TAB PO SCH (08:58)
[2023-10-08] MEDS: Empagliflozin 10 MG TAB PO SCH (08:58)
[2023-10-08] MEDS: Bumetanide 1 MG TAB PO SCH ×2 (10:04→16:38)
[2023-10-08] MEDS: Furosemide 100 MG/10 ML VIAL SLOW IVP SCH (11:15)
[2023-10-08] MEDS ORDERED: ALPRAZolam 0.25 MG TAB PO PRN (11:47)
[2023-10-08] MEDS ORDERED: Morphine 2 MG/ML VIAL SLOW IVP PRN (16:10)
[2023-10-08] MEDS ORDERED: Famotidine 20 MG TAB PO SCH (21:00)
[2023-10-09 07:10] LABS: #Basophils 0.1 thou/uL (0.0-0.2); #Eosinphils 0.3 thou/uL (0.0-0.7); #Monocytes 0.8 thou/uL (0.11-0.59); #Neutrophils 6.8 thou/uL (1.40-6.50); %Basophils 0.9 % (0.0-1.0); %Eosinophils 2.7 % (0.0-10.0); %Lymphocytes 16.2 % (21.0-51.0); %Monocytes 8.2 % (0.0-10.0); %Neutrophils 71.6 % (42.0-75.0); Hematocrit 40.6 % (42.0-52.0); Hemoglobin 13.2 g/dL (14.0-18.0); Mean Corpuscular HGB CONC 32.5 g/dL (32.0-36.0); Mean Corpuscular Hemoglobin 28.9 pg (27.0-31.0); Mean Platelet Volume 9.8 fL (7.4-10.4); Platelet Count 226 10x3/uL (130-400); RBC Distribution Width 16.8 % (11.5-14.5); Red Blood Cell (RBC) Count 4.56 mill/uL (4.70-6.10); White Blood Cell (WBC) Count 9.5 10x3/uL (4.8-10.8)
[2023-10-09 07:35] LABS: Anion Gap 16 mmol/L (10-20); BUN (Urea Nitrogen) 23 mg/dL (8.4-25.7); Calc. Creatinine Clearance 34 mL/min (70-130); Calcium 9.1 mg/dL (7.8-10.44); Carbon Dioxide 24 mmol/L (23-31); Chloride 97 mmol/L (98-107); Estimated GFR 35; Glucose 96 mg/dL (83-110); Potassium 4.2 mmol/L (3.5-5.1); Sodium 133 mmol/L (136-145)
[2023-10-09] MEDS: Aspirin 81 mg Enteric Coated Tablet PO SCH (07:52)
[2023-10-09] MEDS: Bisacodyl 5 MG TAB PO SCH (07:53)
[2023-10-09] MEDS: Montelukast Sodium 10 mg Tablet PO SCH (07:53)
[2023-10-09] MEDS: Midodrine HCl 5 MG TAB PO SCH ×3 (07:53→19:38)
[2023-10-09] MEDS: Empagliflozin 10 MG TAB PO SCH (07:53)
[2023-10-09] MEDS: Digoxin 0.125 MG TAB PO SCH (07:53)
[2023-10-09] MEDS: Amiodarone 200 MG TAB PO SCH (07:54)
[2023-10-09] MEDS: Polyethylene Glycol 3350 17 GM Packet PO SCH (07:54)
[2023-10-09] MEDS: Apixaban 2.5 MG TAB PO SCH ×2 (07:54→19:38)
[2023-10-09] MEDS: Bumetanide 1 MG TAB PO SCH ×2 (07:55→16:25)
[2023-10-09] MEDS: Melatonin 3 MG TAB PO PRN (22:35)
[2023-10-09] MEDS ORDERED: Furosemide 20 MG/2 ML VIAL SLOW IVP SCH (22:45)
[2023-10-10 07:35] LABS: #Basophils 0.1 thou/uL (0.0-0.2); #Eosinphils 0.3 thou/uL (0.0-0.7); #Monocytes 0.9 thou/uL (0.11-0.59); #Neutrophils 4.8 thou/uL (1.40-6.50); %Basophils 0.8 % (0.0-1.0); %Eosinophils 4.2 % (0.0-10.0); %Lymphocytes 22.7 % (21.0-51.0); %Monocytes 11.5 % (0.0-10.0); %Neutrophils 60.4 % (42.0-75.0); Hematocrit 38.3 % (42.0-52.0); Hemoglobin 12.5 g/dL (14.0-18.0); Mean Corpuscular HGB CONC 32.6 g/dL (32.0-36.0); Mean Corpuscular Hemoglobin 28.6 pg (27.0-31.0); Mean Corpuscular Volume 87.6 fl (78.0-98.0); Mean Platelet Volume 9.8 fL (7.4-10.4); Platelet Count 227 10x3/uL (130-400); RBC Distribution Width 16.2 % (11.5-14.5); Red Blood Cell (RBC) Count 4.37 mill/uL (4.70-6.10); White Blood Cell (WBC) Count 7.9 10x3/uL (4.8-10.8)
[2023-10-10] MEDS: Digoxin 0.125 MG TAB PO SCH (08:07)
[2023-10-10] MEDS: Bumetanide 1 MG TAB PO SCH ×2 (08:07→15:36)
[2023-10-10] MEDS: Empagliflozin 10 MG TAB PO SCH (08:07)
[2023-10-10] MEDS: Apixaban 2.5 MG TAB PO SCH (08:07)
[2023-10-10] MEDS: Montelukast Sodium 10 mg Tablet PO SCH (08:07)
[2023-10-10] MEDS: Aspirin 81 mg Enteric Coated Tablet PO SCH (08:07)
[2023-10-10] MEDS: Bisacodyl 5 MG TAB PO SCH (08:08)
[2023-10-10] MEDS: Amiodarone 200 MG TAB PO SCH (08:08)
[2023-10-10] MEDS: Polyethylene Glycol 3350 17 GM Packet PO SCH (08:09)
[2023-10-10] MEDS: Midodrine HCl 5 MG TAB PO SCH ×2 (08:09→15:36)
[2023-10-10 08:11] LABS: Anion Gap 13 mmol/L (10-20); BUN (Urea Nitrogen) 28 mg/dL (8.4-25.7); Calc. Creatinine Clearance 35 mL/min (70-130); Calcium 8.6 mg/dL (7.8-10.44); Carbon Dioxide 26 mmol/L (23-31); Chloride 97 mmol/L (98-107); Estimated GFR 37; Glucose 81 mg/dL (83-110); Potassium 3.7 mmol/L (3.5-5.1); Sodium 132 mmol/L (136-145)
[2023-10-10] MEDS ORDERED: Metolazone 2.5 MG TAB PO SCH (08:30)
[2023-10-10 16:36] VITALS: BP 97/68; TEMP 97.4
[2023-10-10] MEDS ORDERED: Atorvastatin Calcium 10 MG TAB PO SCH (21:00)
== END 2023-10-10 19:30 | disposition short-term general hospital (02) | DRG 291 ==
LOC: ERS 11:28 → OBSVTOIN 13:17 → 2SW 13:17 → IMCU/EMU 09-30 19:17 → 2NO 10-02 12:02 → CCU 10-07 22:27 → T4-A 10-09 11:06
PROVIDERS: ADMIT Hospitalist; ATTEND Family Medicine
PROC: 30233J1 Transfusion of Nonautologous Serum Albumin into Peripheral Vein, Percutaneous Approach (ICD-10-PCS; principal; 2023-09-29)
PROC: 5A09457 Assistance with Respiratory Ventilation, 24-96 Consecutive Hours, Continuous Positive Airway Pressure (ICD-10-PCS; 2023-09-29)
PROC: 3E033XZ Introduction of Vasopressor into Peripheral Vein, Percutaneous Approach (ICD-10-PCS; 2023-10-07)
DX: I13.0 Hypertensive heart and chronic kidney disease with heart failure and stage 1 through stage 4 chronic kidney disease, or unspecified chronic kidney disease (principal); I50.23 Acute on chronic systolic (congestive) heart failure; J96.01 Acute respiratory failure with hypoxia; R57.0 Cardiogenic shock; N17.9 Acute kidney failure, unspecified; E87.1 Hypo-osmolality and hyponatremia; Z66 Do not resuscitate; Z51.5 Encounter for palliative care; E78.5 Hyperlipidemia, unspecified; I25.2 Old myocardial infarction; E87.5 Hyperkalemia; G47.30 Sleep apnea, unspecified; N18.30 Chronic kidney disease, stage 3 unspecified; K21.9 Gastro-esophageal reflux disease without esophagitis; I25.10 Atherosclerotic heart disease of native coronary artery without angina pectoris; I25.5 Ischemic cardiomyopathy; D63.1 Anemia in chronic kidney disease; I48.0 Paroxysmal atrial fibrillation; E87.6 Hypokalemia; Z79.01 Long term (current) use of anticoagulants; Z79.82 Long term (current) use of aspirin; Z79.899 Other long term (current) drug therapy; Z98.49 Cataract extraction status, unspecified eye; Z98.890 Other specified postprocedural states; Z95.818 Presence of other cardiac implants and grafts; Z95.810 Presence of automatic (implantable) cardiac defibrillator; Z86.718 Personal history of other venous thrombosis and embolism; Z88.8 Allergy status to other drugs, medicaments and biological substances; Z90.49 Acquired absence of other specified parts of digestive tract; K59.00 Constipation, unspecified
CPT/HCPCS: 36415; 36416; 71045; 80048; 80053; 83735; 83880; 84484; 85025; 93005; 93010; 93306; 93798; 94660; 96374; J1250; J1940; J2272; J2760; J7030; P9047; Q0162

== ENCOUNTER 2024-07-06 11:15 | Outpatient (CLI) | payer MEDICARE | END 2024-07-06 11:16 | disposition home or self-care (01) | LOC: BICRAD 11:15 | PROVIDERS: ATTEND Internal Medicine Cardiovascular Disease | DX: Z51.81 Encounter for therapeutic drug level monitoring (principal); J98.4 Other disorders of lung; R91.8 Other nonspecific abnormal finding of lung field; Z79.899 Other long term (current) drug therapy; Z95.810 Presence of automatic (implantable) cardiac defibrillator | CPT/HCPCS: 71046 ==

== ENCOUNTER 2024-07-16 09:01 | Outpatient (CLI) | payer MEDICARE | END 2024-07-16 09:02 | disposition home or self-care (01) | LOC: CT 09:01 | PROVIDERS: ATTEND Internal Medicine Critical Care Medicine | DX: J84.9 Interstitial pulmonary disease, unspecified (principal); J84.10 Pulmonary fibrosis, unspecified; R91.8 Other nonspecific abnormal finding of lung field | CPT/HCPCS: 71250 ==